=== PATIENT | male | born 1945 | race Caucasian/White ===

== ENCOUNTER 2021-10-13 09:31 | Emergency (ER) | payer OTHER ==
[2021-10-13] MEDS ORDERED: HYDROCODONE/APAP 5/325 MG TAB ONE (10:35)
[2021-10-13] MEDS ORDERED: LIDOCAINE 4% PATCH ONE (10:35)
--- NOTE | 2021-10-13 11:13 | RAD REPORT ---
EXAM DESCRIPTION: RAD - Chest Single View - 10/13/2021 10:50 am CLINICAL HISTORY: RIB PAIN - RIGHT COMPARISON: Ribs Right dated 10/13/2021 FINDINGS: Lines: None. Lungs: No evidence of edema or pneumonia. Pleural: No significant pleural effusions or pneumothorax. Cardiac: The heart size is within normal limits. Bones: No acute fractures. Other: IMPRESSION: No acute cardiopulmonary disease.
--- NOTE | 2021-10-13 11:15 | RAD REPORT ---
EXAM DESCRIPTION: RAD - Ribs Right - 10/13/2021 10:50 am CLINICAL HISTORY: RIB PAIN - RIGHT COMPARISON: Chest Single View dated 10/13/2021 FINDINGS: No displaced right -sided rib fractures identified. No pneumothorax. IMPRESSION: No displaced right-sided rib fractures identified.
--- NOTE | 2021-10-13 11:58 | ER ---
Nurse's Notes [facility] Name: Isai Vazquez Age: 75 yrs Sex: Male : 1945 Arrival Date: 10/13/2021 Time: 09:35 Bed 18 Private MD: Yaneth Yanes Diagnosis: Contusion of right back wall of thorax Presentation: 10/13 09:43 Chief complaint: Patient states: Fell last Saturday, states fell forward onto concrete, vg1 c./o mid right side back pain that wraps up around to Right side of ribs, Denies of SOB but states pain with deep inhalation . Coronavirus screen: Vaccine status: Patient reports receiving the 2nd dose of the covid vaccine. Client denies travel out of the [place] in the last 14 days. Ebola Screen: Patient denies exposure to infectious person. Patient denies travel to an Ebola-affected area in the 21 days before illness onset. Initial Sepsis Screen: Does the patient meet any 2 criteria? No. Patient's initial sepsis screen is negative. Does the patient have a suspected source of infection? No. Patient's initial sepsis screen is negative. Risk Assessment: Do you want to hurt yourself or someone else? Patient reports no desire to harm self or others. Onset of symptoms was October 08, 2021. 09:43 Method Of Arrival: Ambulatory vg1 09:43 Acuity: ELIDA 3 vg1 Triage Assessment: 09:46 General: Appears uncomfortable, Behavior is calm, cooperative. Pain: Complains of pain vg1 in back Pain currently is 4 out of 10 on a pain scale. Musculoskeletal: Circulation, motion, and sensation intact. Historical: - Allergies: 09:45 Morphine; "sees yellow"; vg1 - Home Meds: 09:45 None [Active]; vg1 - PMHx: 09:45 TIA; vg1 09:46 Bowel Resection; vg1 - PSHx: 09:45 Appendectomy; vg1 - Immunization history:: Client reports receiving the 2nd dose of the Covid vaccine. - Social history:: Smoking status: Patient denies any tobacco usage or history of. Screenin:33 Abuse screen: Denies threats or abuse. Denies injuries from another. Nutritional jimenez screening: No deficits noted. Tuberculosis screening: No symptoms or risk factors identified. Fall Risk None identified. Assessment: 10:33 Pain: Complains of pain in right subscapular area and right mid back. Neuro: No jimenez deficits noted. Level of Consciousness is awake, alert, obeys commands. Derm: Bruising that is dark purple, yellow. Vital Signs: 09:43 BP 140 / 65; Pulse 65; Resp 16; Temp 97.7; Pulse Ox 99% on R/A; Weight 86.18 kg; Height vg1 5 ft. 11 in. (180.34 cm); Pain 4/10; 09:43 Body Mass Index 26.50 (86.18 kg, 180.34 cm) vg1 ED Course: 09:35 Patient arrived in ED. mr 09:35 Yaneth Yanes MD is Private Physician. mr 09:45 Triage completed. vg1 09:46 Arm band placed on. vg1 09:48 Juana Damon RN is Primary Nurse. jimenez 09:54 Da Phelps NP is PHCP. pm1 09:54 Josh Johnson MD is Attending Physician. pm1 10:33 Patient has correct armband on for positive identification. Bed in low position. jimenez 10:33 No provider procedures requiring assistance completed. Inserted intraosseous access jimenez mediport to the right upper chest wall. 10:52 Chest Single View XRAY In Process Unspecified. EDMS 10:52 Ribs Right XRAY In Process Unspecified. EDMS 11:58 Yaneth Yanes MD is Referral Physician. pm1 12:28 Patient did not have IV access during this emergency room visit. jimenez Administered Medications: 10:32 Drug: Lidoderm Patch 5 % (700 mg/patch) 1 patches Route: Topical; Site: affected area; jimenez 10:33 Drug: HYDROcodone-acetaminophen 5 mg-325 mg 1 tabs Route: PO; jimenez 10:33 Follow up: Response: No adverse reaction jimenez Medication: 10:33 VIS not applicable for this client. jimenez Outcome: 11:58 Discharge ordered by . pm1 12:28 Discharged to home ambulatory. jimenez 12:28 Condition: good 12:28 Discharge instructions given to patient, Prescriptions given X 2. 12:29 Patient left the ED. jimenez Signatures: Dispatcher [employer] EDMT Mckeon Aspen mr Da Phelps NP [employer] pm1 Arielle Holbrook RN RN 1 Au-Stager, Juana, RN RN jimenez Corrections: (The following items were deleted from the chart) 09:47 09:43 BP 140 / ???; Pulse 65bpm; Resp 16bpm; Pulse Ox 99% RA; Temp 97.7F; 86.18 kg; vg1 Height 5 ft. 11 in.; BMI: 26.5; Pain 4/10; vg1
--- NOTE | 2021-10-13 11:58 | EDPHYS ---
Physician Documentation [facility] Name: Isai Vazquez Age: 75 yrs Sex: Male : 1945 Arrival Date: 10/13/2021 Time: 09:35 Bed 18 Private MD: Yaneth Yanes ED Physician Josh Johnson HPI: 10/13 16:10 This 75 yrs old Male presents to ER via Ambulatory with complaints of Back Pain. pm1 16:10 The patient presents with pain and an injury. The symptoms are located in the right pm1 lateral ribs. Onset: The symptoms/episode began/occurred 5 day(s) ago. The pain does not radiate. Associated signs and symptoms: The patient has no apparent associated signs or symptoms, Pertinent negatives: abdominal pain, fever, shortness of breath. The problem was sustained during a fall, while walking, Patient tripped and then fell onto his left knee with abrasion and then rolled over hitting his right lateral rib cage. Modifying factors: The patient symptoms are alleviated by nothing, the patient symptoms are aggravated by movement. Severity of symptoms: in the emergency department the symptoms are unchanged. The patient has not experienced similar symptoms in the past. The patient has not recently seen a physician. Historical: - Allergies: 09:45 Morphine; "sees yellow"; vg1 - Home Meds: 09:45 None [Active]; vg1 - PMHx: 09:45 TIA; vg1 09:46 Bowel Resection; vg1 - PSHx: 09:45 Appendectomy; vg1 - Immunization history:: Client reports receiving the 2nd dose of the Covid vaccine. - Social history:: Smoking status: Patient denies any tobacco usage or history of. ROS: 16:10 Constitutional: Negative for fever, chills, and weight loss, Cardiovascular: Negative pm1 for chest pain, palpitations, and edema, Respiratory: Negative for shortness of breath, cough, wheezing, and pleuritic chest pain. 16:10 : Negative for injury, bleeding, discharge, and swelling, MS/Extremity: Negative for injury and deformity, Skin: Negative for injury, rash, and discoloration, Neuro: Negative for headache, weakness, numbness, tingling, and seizure. 16:10 Abdomen/GI: Negative for abdominal pain, nausea, vomiting, and diarrhea. 16:10 Back: Positive for of the right lateral rib cage. 16:10 All other systems are negative. Exam: 16:10 Constitutional: This is a well developed, well nourished patient who is awake, alert, pm1 and in no acute distress. Head/Face: Normocephalic, atraumatic. 16:10 Eyes: Exam is negative for acute changes, Periorbital structures: appear normal, pm1 Pupils: no acute changes, Extraocular movements: intact throughout. 16:10 ENT: Exam is negative for acute changes, Mouth: no acute changes, Lips: normal, moist, Oral mucosa: normal, pink and intact, moist. 16:10 Neck: Exam negative for C-spine: vertebral tenderness, is not appreciated. 16:10 Chest/axilla: Inspection: no acute changes, Palpation: is normal, tenderness, of the right lateral posterior chest, 2 focal point areas of yellow-brownish bruising and mild tenderness. 16:10 Cardiovascular: Exam negative for acute changes, Rate: normal, Rhythm: regular, Pulses: no pulse deficits are appreciated. 16:10 Respiratory: Exam negative for acute changes, respiratory distress, shortness of breath, Breath sounds: are clear throughout. 16:10 Abdomen/GI: Exam negative for acute changes, Inspection: abdomen appears normal, Palpation: abdomen is soft and non-tender, in all quadrants. 16:10 Back: Exam negative for acute changes. 16:10 Musculoskeletal/extremity: Exam is negative for acute changes, Extremities: all appear grossly normal, with no appreciated pain with palpation, ROM: no acute changes. 16:10 Skin: Appearance: normal except for affected area, injury, contusion(s), that are superficial, of the right lateral posterior chest, 2 focal point areas of yellow-brownish bruising and mild tenderness. 16:10 Neuro: Exam negative for acute changes, Orientation: is normal, Mentation: is normal, Motor: is normal, moves all fours. Vital Signs: 09:43 BP 140 / 65; Pulse 65; Resp 16; Temp 97.7; Pulse Ox 99% on R/A; Weight 86.18 kg; Height vg1 5 ft. 11 in. (180.34 cm); Pain 4/10; 09:43 Body Mass Index 26.50 (86.18 kg, 180.34 cm) vg1 MDM: 09:54 Patient medically screened. pm1 11:54 Data reviewed: vital signs. Data interpreted: Pulse oximetry: on room air is 99 %. pm1 Interpretation: normal. Counseling: I had a detailed discussion with the patient and/or guardian regarding: the historical points, exam findings, and any diagnostic results supporting the discharge/admit diagnosis, radiology results, the need for outpatient follow up, to return to the emergency department if symptoms worsen or persist or if there are any questions or concerns that arise at home. 11:54 ED course: Discussed rib findings on x-ray with patient and his . Despite negative pm1 findings for fractures and I am clinically suspicious that there are broken ribs and explained my impression to the patient and . We discussed the option of performing a CT chest and abdomen to find rib fractures but they refused and agreed to follow-up with PCP or the ER if symptoms worsen or do not improve. Patient's pain improved significantly with hydrocodone and Lidoderm patch, will discharge patient home with Tylenol with codeine and Lidoderm patch. 10/13 10:09 Order name: Chest Single View XRAY; Complete Time: 11:14 pm1 10/13 10:09 Order name: Ribs Right XRAY; Complete Time: 11:28 pm1 Administered Medications: 10:32 Drug: Lidoderm Patch 5 % (700 mg/patch) 1 patches Route: Topical; Site: affected area; jimenez 10:33 Drug: HYDROcodone-acetaminophen 5 mg-325 mg 1 tabs Route: PO; jimenez 10:33 Follow up: Response: No adverse reaction jimenez Disposition: 16:21 Co-signature as Attending Physician, Josh Johnson MD I agree with the assessment and kdr plan of care. Disposition Summary: 10/13/21 11:58 Discharge Ordered Location: Home pm1 Problem: new pm1 Symptoms: have improved pm1 Condition: Stable pm1 Diagnosis - Contusion of right back wall of thorax pm1 Followup: pm1 - With: Emergency Department - When: As needed - Reason: Worsening of condition Followup: pm1 - With: Yaneth Yanes MD - When: 2 - 3 days - Reason: Recheck today's complaints, Continuance of care, Re-evaluation by your physician Discharge Instructions: - Discharge Summary Sheet pm1 - Rib Contusion pm1 - Rib Fracture pm1 Forms: - Medication Reconciliation Form pm1 - Thank You Letter pm1 - Antibiotic Education pm1 - Prescription Opioid Use pm1 Prescriptions: - Lidoderm 5 % Topical adhesive patch,medicated - apply 1 patch by TRANSDERMAL route once daily As needed 12 hours on and 12 pm1 hours off in a 24-hour period; 10 patch; Refills: 0, Product Selection Permitted - Tylenol-Codeine #3 300 mg-30 mg Oral - take 2 tablet by ORAL route every 6 hours As needed; 20 tablet; Refills: 0, pm1 Product Selection Permitted Signatures: Dispatcher [employer] EDJosh Bach MD MD kdr Marinas, Patrick, NP [employer] pm1 Arielle Holbrook RN RN vg1 Juana Damon RN RN jimenez
[2021-10-13 12:37] VITALS: BP 140/65; TEMP 97.7; O2SAT 99
== END 2021-10-13 12:29 | disposition home or self-care (01) ==
LOC: ER 09:31
DX: S20.221A Contusion of right back wall of thorax, initial encounter (principal); Z88.5 Allergy status to narcotic agent; Z86.73 Personal history of transient ischemic attack (TIA), and cerebral infarction without residual deficits
CPT/HCPCS: 71045; 71100; 36680; 99284; J2001